=== PATIENT | male | born 1995 | race African-American/Black ===

== ENCOUNTER 2020-05-22 13:08 | Emergency (ER) | payer BC, SELFPAY ==
[~2020-05-22] VITALS: Ht 175.3 cm; Wt 82.1 kg
[2020-05-22 13:10] VITALS: BP 136/80; Ht 175.3 cm; Wt 82.1 kg
== END 2020-05-22 16:11 | disposition home or self-care (01) ==
LOC: ED 13:08
DX: U07.1 COVID-19 (principal)
CPT/HCPCS: U0003